=== PATIENT | male | born 1950 | race African-American/Black ===

== ENCOUNTER 2020-08-09 12:25 | Outpatient (CLI) | payer MEDICARE, SELFPAY ==
--- NOTE | ~2020-08-09 | XR_ITS ---
EXAMINATION: XR chest 2V EXAM DATE: 08/09/2020 13:23 INDICATION: Shortness of breath. TECHNIQUE: Frontal and lateral projections of the chest obtained and reviewed. There is no prior abdiaziz dy for comparison. FINDINGS: The lungs are clear. There are no pleural effusions. The cardiomediastinal silhouette is within normal limits. There is no pneumothorax suspected. The bones and soft tissues are unremarkab le. IMPRESSION: No acute cardiopulmonary findings. Reviewed, dictated and finalized at location A. CAID ELIGIBILITY SPECIALIST
[2020-08-09 13:01] LABS: Basophils Percent Auto 0.3 % (0.2-1.2); Eosinophils Absolute Auto 0.1 K/mm3 (0-0.3); Eosinophils Percent Auto 1.8 % (0-4.4); Hematocrit 41.9 % (42.0-52.0); Hemoglobin 13.7 g/dL (14.0-18.0); Immature Granulocyte Absolute 0.04 K/mm3 (0.00-0.031); Immature Granulocyte Percent A 0.7 % (0-0.5); Lymphocytes Absolute Auto 1.06 K/mm3 (0.9-3.2); Lymphocytes Percent Auto 17.4 % (18.3-44.2); Mean Corpuscular HGB Conc 32.7 g/dl (32-36); Mean Corpuscular Hemoglobin 27.4 pg (26-34); Mean Corpuscular Volume 83.8 fl (80-100); Mean Platelet Volume 11.7 fl (7.4-10.4); Monocytes Absolute Auto 0.5 K/mm3 (0.1-0.6); Monocytes Percent Auto 8.9 % (2.6-8.5); Neutrophils Absolute Auto 4.3 K/mm3 (1.3-6.7); Neutrophils Percent Auto 70.9 % (45.5-73.1); Platelet Count Result 164 k/mm3 (150-375); White Blood Count 6.1 K/mm3 (4.5-10.0)
[2020-08-09 13:11] LABS: Hemoglobin A1C 8.9 % (<5.7)
[2020-08-09 13:24] LABS: Alanine Aminotransferase 57 U/L (4-50); Albumin Level 4.4 g/dL (3.5-5.1); Alkaline Phosphatase 57 U/L (38-126); Anion Gap 5 mmol/L (8-16); Aspartate Amino Transferase 34 U/L (17-59); Bilirubin,Total 0.6 mg/dL (0.2-1.3); Blood Urea Nitrogen 15 mg/dL (9-20); Calcium 9.2 mg/dL (8.4-10.2); Carbon Dioxide 32 mmol/L (22-30); Chloride 100 mmol/L (98-107); Cholesterol 167 mg/dL (0-200); Estimated Glomerular Filt Rate > 60; Glucose 188 mg/dL (75-110); HDL Direct 54 mg/dL; Potassium 4.5 mmol/L (3.4-5.0); Sodium 137 mmol/L (137-145); Triglycerides 77 mg/dL (<150)
[2020-08-09 13:30] LABS: LDL Cholesterol Direct 89 mg/dL
== END 2020-08-09 12:26 | disposition home or self-care (01) ==
PROVIDERS: PCP Internal Medicine; Visit Provider Internal Medicine
DX: D64.9 Anemia, unspecified (principal); I10 Essential (primary) hypertension; R73.02 Impaired glucose tolerance (oral); E78.5 Hyperlipidemia, unspecified; R06.02 Shortness of breath
CPT/HCPCS: 36415; 71046; 80053; 80061; 83036; 85025

== ENCOUNTER → 2020-09-09 01:31 | Outpatient (CLI) | payer MEDICARE, SELFPAY ==
[2020-09-09 19:42] LABS: SARS-CoV-2 RNA PCR Negative
== END ==
PROVIDERS: PCP Internal Medicine; Visit Provider Internal Medicine Gastroenterology
DX: Z01.812 Encounter for preprocedural laboratory examination (principal); Z20.822 Contact with and (suspected) exposure to COVID-19
CPT/HCPCS: C9803; U0003; U0005

== ENCOUNTER 2020-12-08 11:12 | Outpatient (CLI) | payer MEDICARE, SELFPAY ==
--- NOTE | ~2020-12-08 | US_ITS ---
EXAMINATION: US venous doppler LE RT DATE: 12/08/2020 11:53 INDICATION: Right lower limb edema. TECHNIQUE: Grayscale ultrasound images without and with compression and Doppler ultrasound images of the right lower extremity veins were obtained. COMPARISON: None. FINDINGS: The visualized portions of right common femoral vein, profunda (deep) femoral vein, femoral vein, pop liteal vein, peroneal veins, posterior tibial veins, and greater saphenous vein outflow are patent. IMPRESSION: 1. No deep venous thrombosis. Reviewed, dictated and finalized at location A.
== END 2020-12-08 11:13 | disposition home or self-care (01) ==
LOC: ANHIMG 11:14
PROVIDERS: PCP Internal Medicine; Visit Provider Nurse Practitioner
DX: R60.9 Edema, unspecified (principal)
CPT/HCPCS: 93971

== ENCOUNTER 2020-12-29 12:59 | Outpatient (CLI) | payer MEDICARE, SELFPAY ==
--- NOTE | ~2020-12-29 | US_ITS ---
EXAMINATION: US joint non vasc ltd RT DATE: 12/29/2020 13:45 INDICATION: Swelling of the right leg TECHNIQUE: Multiple grayscale and Doppler ultrasound images of the posterior right knee were obtained . COMPARISON: None FINDINGS: Vessels appear normal at the right popliteal fossa with patent and compressible right popliteal and g astrocnemius veins. No abnormal masses or fluid collections identified. Specifically no Mckenzie's cyst is seen. IMPRESSION: 1. Normal study. No Mckenzie's cyst or other abnormal masses or fluid collections at the right popliteal fossa. Reviewed, dictated and finalized at location A.
== END 2020-12-29 13:00 | disposition home or self-care (01) ==
PROVIDERS: PCP Internal Medicine; Visit Provider Nurse Practitioner
DX: R60.9 Edema, unspecified (principal); M79.89 Other specified soft tissue disorders
CPT/HCPCS: 76882

== ENCOUNTER 2021-01-03 14:07 | Outpatient (CLI) | payer MEDICARE, SELFPAY ==
--- NOTE | ~2021-01-03 | CT_ITS ---
EXAMINATION: CT abdomen pelvis w con DATE: 01/03/2021 14:49 INDICATION: Localized edema TECHNIQUE: Computed tomography (CT) of the abdomen and pelvis was performed without intravenous contr ast. The dose-length product was 1332.56 mGy-cm. Automated exposure control and iterative reconstruct ion technique were employed. COMPARISON: None. FINDINGS: Lung bases are unremarkable. Heart size normal. No significant pleural or pericardial effus ion. Fatty infiltration of the liver. Mild atherosclerosis. No significant lymphadenopathy. The spleen, pancreas, left adrenal gland and kidneys are unremarkable. There is a 2.9 cm right adrena l mass, most likely benign adenoma. Gallbladder is present. Nonobstructive bowel gas pattern. No evid ence for diverticulitis. The appendix measures 9 mm which is mildly thickened, although there is no s urrounding periappendiceal inflammation. Prostate gland is enlarged. Mild lumbar spondylosis. IMPRESSION: 1. Hepatic steatosis. 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 3: Mildly thickened appendix measuring 9 mm, although no significant periappendiceal inflammation is identified to suggest acute appendicitis. Reviewed, dictated and finalized at location B. IMPRESSION: 1. Hepatic steatosis. 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 3: Mildly thickened appendix measuring 9 mm, although no significant periappend iceal inflammation is identified to suggest acute appendicitis.
[2021-01-03 14:44] LABS: Estimated Glomerular Filt Rate > 60
== END 2021-01-03 14:08 | disposition home or self-care (01) ==
LOC: ANHIMG 14:11
PROVIDERS: PCP Internal Medicine; Visit Provider Nurse Practitioner
DX: R60.0 Localized edema (principal); K76.0 Fatty (change of) liver, not elsewhere classified; E27.9 Disorder of adrenal gland, unspecified
CPT/HCPCS: 74177; Q9967

== ENCOUNTER 2021-03-09 15:33 | Outpatient (NON) | payer MEDICARE, SELFPAY | END 2021-03-09 15:34 | disposition home or self-care (01) | PROVIDERS: PCP Internal Medicine; Visit Provider Internal Medicine | DX: L02.91 Cutaneous abscess, unspecified (principal) | CPT/HCPCS: 87070; 87075; 87077; 87186; 87205 ==

== ENCOUNTER 2021-11-14 14:27 | Outpatient (CLI) | payer MEDICARE, SELFPAY ==
--- NOTE | ~2021-11-14 | US_ITS ---
EXAMINATION: US abdomen complete DATE: 11/14/2021 15:24 INDICATION: abdominal pain TECHNIQUE: Multiple grayscale and Doppler ultrasound images of the abdomen were obtained. COMPARISON: None available FINDINGS: The head, body, and tail of the pancreas are normal. The liver is enlarged and echogenic. N o surface nodularity. Normal hepatopetal flow in the main portal vein. The gallbladder is normal with no abnormal wall thickening, pericholecystic fluid or stones. The normal common bile duct measures 0 .6 cm . There was no sonographic Wilson sign. The aorta and inferior vena cava are obscured. The right kidney measures 11.1 cm. The left kidney measures 11.6 cm. The kidneys demonstrate normal p arenchymal echogenicity. There is no hydronephrosis. The spleen is normal in appearance and measures 10.2 cm. IMPRESSION: 1. Hepatomegaly and steatosis, noting that hepatitis and fibrosis can also appear echogenic on ultras ound. Reviewed, dictated and finalized at location K. IMPRESSION: 1. Hepatomegaly and steatosis, noting that hepatitis and fibrosis can also appe ar echogenic on ultrasound.
[2021-11-14 16:02] LABS: Hematocrit 40.8 % (42.0-52.0); Hemoglobin 12.8 g/dL (14.0-18.0)
[2021-11-14 16:20] LABS: Alanine Aminotransferase 30 U/L (4-50); Albumin Level 4.8 g/dL (3.5-5.1); Alkaline Phosphatase 60 U/L (38-126); Anion Gap 4 mmol/L (8-16); Aspartate Amino Transferase 24 U/L (17-59); Bilirubin,Total 0.7 mg/dL (0.2-1.3); Blood Urea Nitrogen 18 mg/dL (9-20); Calcium 8.7 mg/dL (8.4-10.2); Carbon Dioxide 32 mmol/L (22-30); Chloride 99 mmol/L (98-107); Cholesterol 174 mg/dL (0-200); Glucose 118 mg/dL (65-110); HDL Direct 60 mg/dL; Potassium 4.3 mmol/L (3.4-5.0); Sodium 135 mmol/L (137-145); Triglycerides 68 mg/dL (<150)
[2021-11-14 16:24] LABS: LDL Cholesterol Direct 87 mg/dL
[2021-11-14 16:29] LABS: Estimated Glomerular Filt Rate > 60
[2021-11-14 16:41] LABS: Hemoglobin A1C 7.5 % (<5.7)
== END 2021-11-14 14:28 | disposition home or self-care (01) ==
PROVIDERS: PCP Internal Medicine; Visit Provider Internal Medicine
DX: R10.9 Unspecified abdominal pain (principal); E78.5 Hyperlipidemia, unspecified; E11.9 Type 2 diabetes mellitus without complications; I10 Essential (primary) hypertension; D64.9 Anemia, unspecified; R16.0 Hepatomegaly, not elsewhere classified; K76.0 Fatty (change of) liver, not elsewhere classified
CPT/HCPCS: 36415; 76700; 80053; 80061; 83036; 85014; 85018

== ENCOUNTER 2022-04-29 14:47 | Outpatient (CLI) | payer MEDICARE, SELFPAY ==
[2022-04-29 15:55] LABS: Alanine Aminotransferase 29 U/L (6-50); Albumin Level 4.5 g/dL (3.5-5.1); Alkaline Phosphatase 54 U/L (38-126); Anion Gap 11 mmol/L (8-16); Aspartate Amino Transferase 21 U/L (17-59); Bilirubin,Total 0.3 mg/dL (0.2-1.3); Blood Urea Nitrogen 15 mg/dL (9-20); Calcium 8.9 mg/dL (8.4-10.2); Carbon Dioxide 30 mmol/L (22-30); Chloride 98 mmol/L (98-107); Cholesterol 170 mg/dL (0-200); Estimated Glomerular Filt Rate > 60; Glucose 136 mg/dL (65-110); HDL Direct 47 mg/dL; Potassium 3.8 mmol/L (3.4-5.0); Sodium 139 mmol/L (137-145); Triglycerides 134 mg/dL (<150)
[2022-04-29 16:00] LABS: Hemoglobin A1C 8.8 % (<5.7)
[2022-04-29 16:05] LABS: LDL Cholesterol Direct 91 mg/dL
== END 2022-04-29 14:48 | disposition home or self-care (01) ==
PROVIDERS: PCP Internal Medicine; Visit Provider Internal Medicine
DX: E11.9 Type 2 diabetes mellitus without complications (principal); I10 Essential (primary) hypertension; E78.5 Hyperlipidemia, unspecified
CPT/HCPCS: 36415; 80053; 80061; 83036

== ENCOUNTER 2022-09-09 09:59 | Outpatient (CLI) | payer MEDICARE, SELFPAY ==
[2022-09-09 11:03] LABS: Alanine Aminotransferase 34 U/L (6-50); Albumin Level 4.8 g/dL (3.5-5.1); Alkaline Phosphatase 57 U/L (38-126); Anion Gap 6 mmol/L (8-16); Aspartate Amino Transferase 23 U/L (17-59); Bilirubin,Total 0.7 mg/dL (0.2-1.3); Blood Urea Nitrogen 13 mg/dL (9-20); Calcium 9.6 mg/dL (8.4-10.2); Carbon Dioxide 29 mmol/L (22-30); Chloride 96 mmol/L (98-107); Cholesterol 166 mg/dL (0-200); Estimated Glomerular Filt Rate > 60; Glucose 158 mg/dL (65-110); HDL Direct 45 mg/dL; Potassium 4.2 mmol/L (3.4-5.0); Sodium 131 mmol/L (137-145); Triglycerides 93 mg/dL (<150)
[2022-09-09 11:14] LABS: LDL Cholesterol Direct 82 mg/dL
[2022-09-09 17:14] LABS: Hemoglobin A1C 8.5 % (<5.7)
== END 2022-09-09 10:00 | disposition home or self-care (01) ==
PROVIDERS: PCP Internal Medicine; Visit Provider Nurse Practitioner Family
DX: E78.5 Hyperlipidemia, unspecified (principal); E11.9 Type 2 diabetes mellitus without complications
CPT/HCPCS: 36415; 80053; 80061; 83036

== ENCOUNTER 2023-01-15 10:19 | Outpatient (CLI) | payer MEDICARE, SELFPAY ==
[2023-01-15 11:08] LABS: Alanine Aminotransferase 24 U/L (6-50); Albumin Level 4.5 g/dL (3.5-5.1); Alkaline Phosphatase 48 U/L (38-126); Anion Gap 6 mmol/L (8-16); Aspartate Amino Transferase 20 U/L (17-59); Bilirubin,Total 0.4 mg/dL (0.2-1.3); Blood Urea Nitrogen 15 mg/dL (9-20); Calcium 8.7 mg/dL (8.4-10.2); Carbon Dioxide 29 mmol/L (22-30); Chloride 104 mmol/L (98-107); Cholesterol 177 mg/dL (0-200); Estimated Glomerular Filt Rate > 60; Glucose 150 mg/dL (65-110); HDL Direct 57 mg/dL; Potassium 4.2 mmol/L (3.4-5.0); Sodium 139 mmol/L (137-145); Triglycerides 74 mg/dL (<150)
[2023-01-15 11:19] LABS: LDL Cholesterol Direct 89 mg/dL
== END 2023-01-15 10:20 | disposition home or self-care (01) ==
PROVIDERS: PCP Nurse Practitioner; Visit Provider Nurse Practitioner
DX: E78.5 Hyperlipidemia, unspecified (principal); E11.9 Type 2 diabetes mellitus without complications
CPT/HCPCS: 36415; 80053; 80061; 83036

== ENCOUNTER 2023-01-16 15:52 | Outpatient (CLI) | payer MEDICARE, SELFPAY ==
[2023-01-16 17:00] LABS: Hematocrit 39.7 % (42.0-52.0); Hemoglobin 12.7 g/dL (14.0-18.0); Mean Corpuscular Hemoglobin 27.7 pg (26-34); Mean Corpuscular Volume 86.7 fl (80-100); Mean Platelet Volume 11.4 fl (7.4-10.4); Platelet Count Result 171 k/mm3 (150-375); Red Blood Count 4.58 M/mm3 (4.6-6.20); Red Cell Distribution Width 13.6 % (11.5-14.5); White Blood Count 5.7 K/mm3 (4.5-10.0)
== END 2023-01-16 15:53 | disposition home or self-care (01) ==
LOC: ANHLAB 15:58
PROVIDERS: PCP Nurse Practitioner; Visit Provider Family Medicine
DX: D64.9 Anemia, unspecified (principal); E11.9 Type 2 diabetes mellitus without complications; E66.9 Obesity, unspecified; E78.5 Hyperlipidemia, unspecified; G47.33 Obstructive sleep apnea (adult) (pediatric); I10 Essential (primary) hypertension; K21.9 Gastro-esophageal reflux disease without esophagitis; M16.11 Unilateral primary osteoarthritis, right hip; M17.0 Bilateral primary osteoarthritis of knee; N40.0 Benign prostatic hyperplasia without lower urinary tract symptoms; R06.02 Shortness of breath; R60.0 Localized edema
CPT/HCPCS: 36415; 85027

== ENCOUNTER 2023-04-07 14:56 | Outpatient (CLI) | payer MEDICARE, SELFPAY ==
[2023-04-07 16:21] LABS: Thyroid Stimulating Hormone 0.558 uIU/mL (0.465-4.680)
[2023-04-07 16:38] LABS: Iron 72 ug/dL (49-181)
[2023-04-07 16:47] LABS: Percent Iron Saturation 20 % (20-50)
== END 2023-04-07 14:57 | disposition home or self-care (01) ==
PROVIDERS: Family Medicine; PCP Nurse Practitioner; Visit Provider Nurse Practitioner Family
DX: D64.9 Anemia, unspecified (principal)
CPT/HCPCS: 36415; 82607; 83540; 83550; 84443

== ENCOUNTER 2024-01-28 15:42 | Outpatient (CLI) | payer MEDICARE, SELFPAY ==
[2024-01-28 16:58] LABS: Creatinine Urine 71.9 mg/dL
[2024-01-28 17:03] LABS: MALB Creatinine Ratio 10.8 mg/g (0-30); Microalbumin Urine Random 7.8 mg/L (0-16.7)
[2024-01-28 17:50] LABS: Hemoglobin A1C 6.9 % (<5.7)
== END 2024-01-28 15:43 | disposition home or self-care (01) ==
PROVIDERS: PCP Family Medicine; Visit Provider Family Medicine
DX: E11.9 Type 2 diabetes mellitus without complications (principal); N40.0 Benign prostatic hyperplasia without lower urinary tract symptoms; D64.9 Anemia, unspecified; I10 Essential (primary) hypertension; E78.5 Hyperlipidemia, unspecified; G47.33 Obstructive sleep apnea (adult) (pediatric); E66.9 Obesity, unspecified; Z00.00 Encounter for general adult medical examination without abnormal findings
CPT/HCPCS: 36415; 82043; 83036

== ENCOUNTER 2024-01-29 09:34 | Outpatient (CLI) | payer MEDICARE, SELFPAY ==
[2024-01-29 10:32] LABS: Alanine Aminotransferase 20 U/L (6-50); Albumin Level 4.6 g/dL (3.5-5.1); Alkaline Phosphatase 45 U/L (38-126); Anion Gap 7 mmol/L (4-12); Aspartate Amino Transferase 21 U/L (17-59); Bilirubin,Total 0.5 mg/dL (0.2-1.3); Blood Urea Nitrogen 12 mg/dL (9-20); Carbon Dioxide 33 mmol/L (22-30); Chloride 98 mmol/L (98-107); Cholesterol 155 mg/dL (0-200); Estimated Glomerular Filt Rate > 60; Glucose 116 mg/dL (65-110); HDL Direct 51 mg/dL; Potassium 4.3 mmol/L (3.4-5.0); Sodium 138 mmol/L (137-145); Triglycerides 99 mg/dL (<150)
[2024-01-29 10:43] LABS: LDL Cholesterol Direct 85 mg/dL
[2024-01-29 11:00] LABS: Prostate Specific Antigen 1.5 ng/mL (< OR = 4.0)
== END 2024-01-29 09:35 | disposition home or self-care (01) ==
LOC: ANHLAB 09:39
PROVIDERS: PCP Family Medicine; Visit Provider Family Medicine
DX: E66.9 Obesity, unspecified (principal); Z00.00 Encounter for general adult medical examination without abnormal findings; I10 Essential (primary) hypertension; D64.9 Anemia, unspecified; N40.0 Benign prostatic hyperplasia without lower urinary tract symptoms; G47.33 Obstructive sleep apnea (adult) (pediatric); E78.5 Hyperlipidemia, unspecified; Z12.5 Encounter for screening for malignant neoplasm of prostate
CPT/HCPCS: 36415; 80053; 80061; 84153; G0103

== ENCOUNTER 2024-08-09 12:09 | Outpatient (CLI) | payer MEDICARE, SELFPAY ==
--- NOTE | ~2024-08-09 | XR_ITS ---
Clinical Indication: Cough PA and lateral views of the chest: Comparison: 08/09/2020 Findings: The lungs are clear, without evidence of focal consolidation or pleural effusion. Cardiome diastinal silhouette is within normal limits. Bones and soft tissues are unremarkable. Impression: Normal chest. Reviewed, dictated and finalized at location . ORS MOTIVATIONAL Impression: Normal chest.
--- OUTSIDE RECORDS SUMMARY | 2024-08-09 12:51 | XMS_ITS | Clinical Summary ---
Author Organization [facility] Address [address] [place] [address] Care Team Providers Care Cost Control Supervisor Name Role Phone Yung Koch Primary Care Provider [phone] Source Comments [facility],non-owned Affiliates and Associated Physician Practices is amultiple site organization consisting of ambulatory clinics and hospital sitesin [place], [place], [place] and [place]. This disclosure is being madepursuant to the Care Everywhere program and may not contain all information available regarding this patient. Last updated 18.[facility] Allergies No known active allergies Social History Tobacco Use Types Packs/Day Years Used Date Smoking Tobacco: Never Assessed Sex and Gender Information Value Date Recorded Sex Assigned at Not on file Gender Identity Not on file Sexual Orientation Not on file Last Filed Vital Signs Vital Sign Reading Time Taken Comments Blood Pressure 132/90 06/09/2020 2:54 PM BEAD FLIPPER Pulse 70 06/09/2020 2:54 PM BEAD FLIPPER Temperature 37.1 ??C (98.7 ??F) 06/09/2020 2:54 PM CS T Respiratory Rate 16 06/09/2020 2:54 PM BEAD FLIPPER Oxygen Saturation 95% 06/09/2020 2:54 PM BEAD FLIPPER Inhaled Oxygen Concentration - - Weight 113.4 kg (250 lb) 06/09/2020 2:54 PM BEAD FLIPPER Height 180.3 cm (5' 11 ) 06/09/2020 2:54 PM BEAD FLIPPER Body Mass Index 34.87 06/09/2020 2:54 PM BEAD FLIPPER Plan of Treatment Health Maintenance Due Date Last Done Comments KWASI (AGES 45-75) - COL ON CA SCREENING 1949 COLON MONITORING 1949 COLONOSCOPY - COLON CA SCREENING 1949 CT COLONOGRAPHY - COLON CA SCREENING 1949 Colorectal Cancer Screening 1949 FIT - COLON CA SCREENING 1949 FLEX SIG - COLON CA SCREENING 1949 LIPID TESTING 1949 HEPATITIS C SCREENING 07/28/1967 DTAP/TDAP/TD VACCINES (1 - Tdap) 1968 PNEUMOCOCCAL VACCINE 50+ (1 of 1 - PCV) 1999 ZOSTER VACCINE (1 of 2) 1999 SCREENING FOR DIABETES 06/09/2020 COVID-19 VACCINE (1 - 2023-2 5 season) 2024 INFLUENZA VACCINE (#1) 2024 DEPRESSION SCREENING 07/14/2024 MEDICARE AWV ? CALENDAR YEAR 2024 Respiratory Syncytial Virus (RSV) Vaccine Pt: or over 60 yrs (1 - 1-dose 75+ series) 2024 HEPATITIS B VACCINE Aged Out No longe r eligible based on patient's age to complete this topic HIB VACCINE Aged Out No longer eligi ble based on patient's age to complete this topic HPV VACCINE Aged Out No longer eligi ble based on patient's age to complete this topic MENINGOCOCCAL (Group B) VACCINE Aged Out No longer eligible based on patient's age to complete this topic MENINGOCOCCAL VACCINE Aged Out No angi tahira eligible based on patient's age to complete this topic Care Teams Cost Control Supervisor Relationship Specialty Start Date End Date Yung Koch DO [address] [place] [address] PCP - General Internal Medicine 06/09/20
--- OUTSIDE RECORDS SUMMARY | 2024-08-09 12:51 | XMS_ITS | Referral Summary ---
Author Organization [facility] Address [address] [place] [address] Care Team Providers Care Casing Blower Name Role Phone Unknown, Notinfile Primary Care Provider Unavail able Allergies No known active allergies Medications Accu-Chek Fastclix Lancet Drum misc USE TO CHECK BLOOD SUGAR EVERY DAY 11/11/2020 Active lisinopriL (PRINIVIL,ZESTR IL) 40 mg tablet Take 1 tablet (40 mg total) by mouth daily 12/23/2020 Active semaglutide (OZEMPIC SUBQ) Inject under the skin Active benzonatate (TESSALON) 200 mg capsuleIndicati ons:COVID-19 Take 1 capsule (200 mg total) by mouth 3 (three) times a day as needed for cough 30 capsule 02/14/2024 Active Active Problems Problem Noted Date Diagnosed Date Lymphedema 03/01/2021 Assessment & Plan (04/06/2021 3:24 PM CDT): Impression: Patient complains of a history of bilateral lower extremity edema with right lower extremity worsening in the last month. He is currently not utilizing medical grade compression stockings. He denies any symptoms of claudication, ischemic rest pain, or ulcerations to bilateral lower extremities. Patient has significant chronic edema, hyperpigmentation, and swelling from the toes to the groin, has been utilizing compression therapy 20-30 mm of mercury for greater than 4 weeks, leg elevation, and exercise without improvement of symptoms Plan: Recommend patient wearing medical grade 20 30 mmHg compression stocking and elevate legs to help with edema. Patient to follow-up in 4 weeks for re- evaluation. Assessment & Plan (04/05/2021 9:46 AM CDT): Patient has lymphedema of the bilateral lower extremities without any signs of reflux of the great or small saphenous vein on the right. Plan will be to continue using his compression stockings, lymphedema pumps, leg elevation, exercise and weight loss. I will have him follow up in 3 months to see how he is doing with his lymphedema pumps. Assessment & Plan (03/01/2021 12:16 PM CDT): Patient has bilateral lower extremity lymphedema worse on the right. He has been wearing compression stockings and is keeping his legs elevated whenever he is sitting. He has also been compliant with exercising as much as he can as he walks several miles a day. He also has skin changes with hyperpigmentation of his bilateral lower extremities. Plan will be for lymphedema pumps to aid in decreasing the swelling of his bilateral lower extremities. He will also continue wear his compression stockings daily and keep his legs elevated when able. I will have him follow up in 1 month. BMI 38.0-38.9,adult 02/02/2021 Hypertension 02/02/2021 Assessment & Plan (04/05/2021 9:47 AM CDT): Followed by his PCP and controlled on his current medications. Assessment & Plan (03/01/2021 12:14 PM CDT): Followed by his PCP and currently controlled on his medications. Assessment & Plan (02/02/2021 11:41 AM CDT): Impression: Patient reports he has newly diagnosed in the last 6 months with hypertension. Primary care provider is currently changing medications to meet goal. Plan: Medications reviewed. Continue blood pressure management as per primary care provider. Type 2 diabetes mellitus wit hout complication, without long-term current use of insulin ([facility]) 02/02/2021 Assessment & Plan (04/05/2021 9:46 AM CDT): Followed by his PCP and controlled on his current medications. Assessment & Plan (03/01/2021 12:14 PM CDT): Followed by his PCP and controlled on his current medications. Assessment & Plan (02/02/2021 11:42 AM CDT): Impression: Patient reports he has newly diagnosed type 2 diabetes in the last 6 months. Blood sugars are controlled with medications. Plan: Medications reviewed. Continue glucose monitoring as per primary care provider. Localized edema 02/02/2021 Immunizations Name Administration Dates Next Due Influenza, Quadrivalent, Hig h Dose, Preservative Free, Intrr 05/09/2021 Influenza, Trivalent, Adjuvanted, Intramuscular 09/22/2019 Influenza, Trivalent, High D ose, Split, Preservative Free, Intramuscular 05/10/2017,07/03/2016 Influenza, Trivalent, IM (MDV) 05/27/2014 Influenza, Trivalent, Preservative Free, Intramu scular 06/16/2015 Social History Tobacco Use Types Packs/Day Years Used Date Smoking Tobacco: Former Smokeless Tobacco: Never Personal Safety Answer Date Recorded Getting School Help Needed Not on file 09/13 Sex and Gender Information Value Date Recorded Sex Assigned at Not on file Legal Sex Male 3:50 PM CDT Gender Identity Not on file Sexual Orientation Not on file Last Filed Vital Signs Vital Sign Reading Time Taken Comments Blood Pressure 145/79 02/14/2024 6:06 PM CDT Pulse 75 02/14/2024 6:06 PM CDT Temperature 37.2 ??C (99 ??F) 02/14/2024 6:06 PM CDT Respiratory Rate 22 02/14/2024 6:06 PM CDT Oxygen Saturation 97% 02/14/2024 6:06 PM CDT Inhaled Oxygen Concentration - - Weight 113.4 kg (250 lb) 02/14/2024 6:06 PM CDT Height 180.3 cm (5' 11 ) 02/14/2024 6:06 PM CDT Body Mass Index 34.87 02/14/2024 6:06 PM CDT Plan of Treatment Not on file Insurance [facility] MDCR HMO REF MEDICARE SOLUTIONS Care Teams Casing Blower Relationship Specialty Start Date End Date Unknown, Notinfile PCP - General 02/14/24
--- OUTSIDE RECORDS SUMMARY | 2024-08-09 12:51 | XMS_ITS | Patient Health Summary ---
Author Organization [facility] [employer] Address [address] [place] [address] Care Team Providers Care Russian History Professor Name Role Phone Yung Koch Primary Care Provider [phone] Note from [facility],non-owned Affiliates and Associated Physician Practices is amultiple site organization consisting of ambulatory clinics and hospital sitesin [place], [place], [place] and [place]. This disclosure is being madepursuant to the Care Everywhere program and may not contain all information available regarding this patient. Last updated 18.[facility] [employer] Allergies No known active allergies Social History Tobacco Use Types Packs/Day Years Used Date Smoking Tobacco: Never Assessed Sex and Gender Information Value Date Recorded Sex Assigned at Not on file Gender Identity Not on file Sexual Orientation Not on file Last Filed Vital Signs Vital Sign Reading Time Taken Comments Blood Pressure 132/90 06/09/2020 2:54 PM BLANKING MACHINE OPERATOR Pulse 70 06/09/2020 2:54 PM BLANKING MACHINE OPERATOR Temperature 37.1 ??C (98.7 ??F) 06/09/2020 2:54 PM CS T Respiratory Rate 16 06/09/2020 2:54 PM BLANKING MACHINE OPERATOR Oxygen Saturation 95% 06/09/2020 2:54 PM BLANKING MACHINE OPERATOR Inhaled Oxygen Concentration - - Weight 113.4 kg (250 lb) 06/09/2020 2:54 PM BLANKING MACHINE OPERATOR Height 180.3 cm (5' 11 ) 06/09/2020 2:54 PM BLANKING MACHINE OPERATOR Body Mass Index 34.87 06/09/2020 2:54 PM BLANKING MACHINE OPERATOR Procedures * COVID-19 SARS-COV-2 PCR QUAL ([facility])(Performed 06/09/2020) Performed for Acute maxillary sinusitis, recurrence not specified Results * COVID-19 SARS-COV-2 PCR QUAL ([facility]) (06/09/2020 3:04 PM BLANKING MACHINE OPERATOR) SARS-CoV-2 RUSLAN Not Detected Not Detected [facility] ACCOUNT BILL Comment: This nucleic acid amplification test was developed and its performance characteristics determined by [employer]. Nucleic acid amplification tests include PCR and TMA. This test has not been FDA cleared or approved. This test has been authorized by FDA under an Emergency Use Authorization (EUA). This test is only authorized for the duration of time the declaration that circumstances exist justifying the authorization of the emergency use of in vitro diagnostic tests for detection of SARS-CoV-2 virus and/or diagnosis of COVID-19 infection under section 564(b)(1) of the Act, 21 U.S.C. 360bbb-3(b) (1), unless the authorization is terminated or revoked sooner. When diagnostic testing is negative, the possibility of a false negative result should be considered in the context of a patient's recent exposures and the presence of clinical signs and symptoms consistent with COVID-19. An individual without symptoms of COVID-19 and who is not shedding SARS-CoV-2 virus would expect to have a negative (not detected) result in this assay. Microbiology SPECIMEN FROM NASOPHARYNGEAL STRUCTURE / Unknown 06/09/2020 3:04 PM BLANKING MACHINE OPERATOR 06/10/2020 Narrative Resulting Agency Comment Lab Testing performed at: [facility] ?? [place] [id number] Alfred Lynn [employer]CR[employer] AGENT-HOT CELL TECHNICIAN LAB - MICROBIOLOG Y ORDERABLES [facility] ACCOUNT BILL [address] [place] [address] Care Teams Russian History Professor Relationship Specialty Start Date End Date Yung Koch DO [address] [place] [address] PCP - General Internal Medicine 06/09/20
--- OUTSIDE RECORDS SUMMARY | 2024-08-09 12:51 | XMS_ITS | Clinical Summary ---
Author Organization [facility] [place] [facility] Address [address] [place] [address] Care Team Providers Care Instrument Man Name Role Phone Unknown, Notinfile Primary Care [...] complication, without long-term current use of insulin ([facility]) 02/02/2021 Assessment & Plan (04/05/2021 9:46 AM [...] on file Sexual Orientation Not on file Obstetrics History Last Filed Vital Signs Vital Sign Reading [...] 02/14/2024 6:06 PM CDT Plan of Treatment Health Maintenance Due Date Last Done Comments Albumin Creatinine Ratio, Urine 1949 Colon Cancer Screening-Colonoscopy 1949 Depression Screening 1949 Fall Risk Assessment 1949 Hemoglobin A1C 1949 Hepatitis C Screening 1949 eGFR 1949 Dilated Eye Exam 1949 Foot Exam 1949 Lipid Panel 1949 Pneumococcal vaccine 65+ (1 of 2 - PCV) 1955 DTaP/Tdap/Td Vaccine (1 - Tdap) 1960 Hepatitis B Screening 1967 Zoster Vaccine (1 of 2) 1999 Abdominal Aortic Aneurysm (A AA) Screen 2014 Well Visit 65+ 2014 Covid-19 Vaccine (2 - 2023-2 5 season) 2024 05/09/2021 Influenza Vaccine (#1) 2024 , 09/22/2019, 05/10/2017, Additional history exists Insurance [facility] MDCR HMO REF [facility] Address: [address] [address] [place] [address] MEDICARE SOL[employer] [facility] MEDIC[facility] Address: [address] [address] [place] [address] Care Teams Instrument Man Relationship Specialty Start Date End Date Unknown, Notinfile PCP - General 02/14/24
--- OUTSIDE RECORDS SUMMARY | 2024-08-09 12:51 | XMS_ITS | Referral Summary ---
Author Organization [facility] [employer] Address [address] [place] [address] Care Team Providers Care Farmer General Name Role Phone Yung Koch Primary Care Provider [phone] Source Comments [facility],non-owned Affiliates and Associated Physician Practices is amultiple site organization consisting of ambulatory clinics and hospital sitesin [place], [place], [place] and [place]. This disclosure is being madepursuant to the Care Everywhere program and may not contain all information available regarding this patient. Last updated 18.[facility] [employer] Allergies No known active allergies Social History Tobacco Use Types Packs/Day Years Used Date Smoking Tobacco: Never Assessed Sex and Gender Information Value Date Recorded Sex Assigned at Not on file Gender Identity Not on file Sexual Orientation Not on file Last Filed Vital Signs Vital Sign Reading Time Taken Comments Blood Pressure 132/90 06/09/2020 2:54 PM LOGGING ENGINEER Pulse 70 06/09/2020 2:54 PM LOGGING ENGINEER Temperature 37.1 ??C (98.7 ??F) 06/09/2020 2:54 PM CS T Respiratory Rate 16 06/09/2020 2:54 PM LOGGING ENGINEER Oxygen Saturation 95% 06/09/2020 2:54 PM LOGGING ENGINEER Inhaled Oxygen Concentration - - Weight 113.4 kg (250 lb) 06/09/2020 2:54 PM LOGGING ENGINEER Height 180.3 cm (5' 11 ) 06/09/2020 2:54 PM LOGGING ENGINEER Body Mass Index 34.87 06/09/2020 2:54 PM LOGGING ENGINEER Plan of Treatment Not on file Care Teams Farmer General Relationship Specialty Start Date End Date Yung Koch DO [address] [place] [address] PCP - General Internal Medicine 06/09/20
[2024-08-09 12:59] LABS: Hemoglobin 12.9 g/dL (14.0-18.0); Mean Corpuscular HGB Conc 32.3 g/dl (32-36); Mean Corpuscular Hemoglobin 27.3 pg (26-34); Mean Corpuscular Volume 84.7 fl (80-100); Mean Platelet Volume 10.9 fl (7.4-10.4); Platelet Count Result 184 k/mm3 (150-375); Red Blood Count 4.72 M/mm3 (4.6-6.20); Red Cell Distribution Width 13.1 % (11.5-14.5); White Blood Count 5.1 K/mm3 (4.5-10.0)
[2024-08-09 13:15] LABS: Alanine Aminotransferase 28 U/L (6-50); Albumin Level 4.4 g/dL (3.5-5.1); Alkaline Phosphatase 43 U/L (38-126); Anion Gap 7 mmol/L (4-12); Aspartate Amino Transferase 25 U/L (17-59); Bilirubin,Total 0.8 mg/dL (0.2-1.3); Blood Urea Nitrogen 11 mg/dL (9-20); Calcium 8.8 mg/dL (8.4-10.2); Carbon Dioxide 32 mmol/L (22-30); Chloride 100 mmol/L (98-107); Estimated Glomerular Filt Rate > 60; Glucose 106 mg/dL (65-110); Potassium 4.4 mmol/L (3.4-5.0); Sodium 139 mmol/L (137-145)
[2024-08-09 13:40] LABS: Creatinine Urine 84.7 mg/dL
[2024-08-09 13:44] LABS: Microalbumin Urine Random 59.3 mg/L (0-16.7)
[2024-08-09 22:36] LABS: Hemoglobin A1C 8.7 % (<5.7)
== END 2024-08-09 12:10 | disposition home or self-care (01) ==
PROVIDERS: PCP Family Medicine; Visit Provider Nurse Practitioner Family
DX: R05.9 Cough, unspecified (principal); E11.9 Type 2 diabetes mellitus without complications
CPT/HCPCS: 36415; 71046; 80053; 82043; 83036; 85027

== ENCOUNTER 2024-10-18 08:54 | Observation (INO) | payer MEDICARE, SELFPAY ==
[2024-10-18] VITALS (12 sets, daily range): BP systolic 128–167; BP diastolic 63–101; PULSE 57–77; RESP 14–18; TEMP 36.6–37.1; O2SAT 94–98; BMI 34.7
--- NOTE | ~2024-10-18 | CT_ITS ---
CT brain wo con Ordering provider: Supriya Mederos PA-C History: 74 years Male with . dizziness . Comparison: None. Technique: CT of the head without contrast. Radiation reduction technique utilized.The dose-length pr oduct was 605.33 mGy-cm. FINDINGS: BRAIN PARENCHYMA AND CSF SPACES: Mild leukoaraiosis and diffuse cortical atrophy. Mild atheromatous d isease. No midline shift, mass effect or hemorrhage. The brain parenchyma and CSF spaces are otherwi se normal. VISUALIZED PARANASAL SINUSES: Well aerated. MASTOIDS: Well aerated. BONES: The bones appear intact. SOFT TISSUES: Visualized nasopharynx is normal. Superficial soft tissues are normal. IMPRESSION: No acute intracranial findings. Reviewed, dictated and finalized at location A.
--- NOTE | ~2024-10-18 | XR_ITS ---
Clinical Indication: Dizziness PA and lateral views of the chest: Comparison: 08/09/2024 Findings: The lungs are clear, without evidence of focal consolidation or pleural effusion. Cardiome diastinal silhouette is within normal limits. Bones and soft tissues are unremarkable. Impression: Normal chest. Reviewed, dictated and finalized at location . Impression: Normal chest.
--- NOTE | ~2024-10-18 | CT_ITS ---
CTA brain carotid Ordering provider: Supriya Mederos PA-C History: . dizziness . Comparison: October 28, 2024 Technique: CT angiogram head and neck was performed following timed intravenous injection of contrast . Thin slice axial images and reformatted coronal images were obtained. Three dimensional reformatted images of the brain were also obtained using a [employer] workstation. Radiation reduction technique ut ilized.The dose-length product was 1171.52 mGy-cm. 100 mL Omnipaque 350 was given IV. FINDINGS: HEAD: --ANTERIOR AND MIDDLE CEREBRAL ARTERIES AND BRANCHES: Normal caliber and contour. --INTERNAL CAROTID ARTERIES: Mild atheromatous disease but no significant stenosis. No occlusion. --BASILAR ARTERY AND BRANCHES: Normal caliber and contour. No atheromatous disease. --POSTERIOR CEREBRAL ARTERIES: Normal caliber and contour --POSTERIOR COMMUNICATING ARTERIES: The right is demonstrated. The left is not visualized which is pr obably related to congenital absence or small size. --ANEURYSM: None visualized. --BRAIN: Please refer to report of CT head performed the same day. --BONES AND SUPERFICIAL SOFT TISSUES: Please refer to report of CT head performed the same day. --PARANASAL SINUSES AND MASTOIDS: Please refer to report of CT head done the same day. NECK: --RIGHT CERVICAL CAROTID SYSTEM: Normal caliber and contour. Percent stenosis per NASCET criteria is 0%. No carotid dissection. Otherwise, no significant atheromatous disease or stenosis of the cervica l carotid system. --LEFT CERVICAL CAROTID SYSTEM: Normal caliber and contour. Percent stenosis per NASCET criteria is 0%. No carotid dissection. Otherwise, no significant atheromatous disease or stenosis of the cervical carotid system. --VERTEBRAL ARTERIES: Normal caliber and contour. --VISUALIZED AORTIC ARCH AND BRANCHING VESSELS: Normal caliber and contour. No significant atheromato us disease. --SOFT TISSUES: Nodule in the right lobe of the thyroid with calcification. Ultrasound evaluation adv ised. --CERVICAL SPINE: Age appropriate degenerative changes. IMPRESSION: 1. Normal CTA head and neck. Percent stenosis per NASCET criteria is 0%. Reviewed, dictated and finalized at location A.
--- NOTE | ~2024-10-18 | MR_ITS ---
EXAMINATION: MR brain/brain stem wo/w con DATE: 10/20/2024 10:25 INDICATION: Transient ischemic episode TECHNIQUE: Magnetic resonance imaging (MRI) of the brain and brainstem was performed without and with 20 mL ProHance intravenous contrast. Sequences included sagittal and axial T1-weighted SE, axial dif fusion-weighted FS SE, axial 3D SWAN, axial T2-weighted FLAIR, and axial T2-weighted FSE. Postcontras t axial and coronal T1-weighted SE was obtained. Apparent diffusion coefficient (ADC) maps were creat ed. COMPARISON: Head CT and CT angiogram dated 10/18/2024 FINDINGS: There are no areas of restricted diffusion to suggest acute infarction. No intracranial hemorrhage or abnormal intracranial mass lesion. There are scattered areas of nonspecific increased T2-weighted si gnal intensity in the cerebral white matter, predominantly involving the deep and periventricular whi te matter which is within normal limits for age and likely sequela of chronic small vessel ischemic d isease. There are no intraparenchymal signal abnormalities seen on the other pulse sequences. The angeline tricles are symmetric and normal in size. There are no abnormal extra-axial fluid collections. Flow v oids are seen in the cerebral arteries on the T2-weighted sequences consistent with their expected pa tency. Mild mucosal thickening in the bilateral ethmoid and maxillary sinuses. Visualized orbits and soft tissues are unremarkable. There are no areas of abnormal enhancement on the post contrast images . IMPRESSION: 1. Normal aging brain. No acute intracranial process or abnormally enhancing brain lesions. Reviewed, dictated and finalized at location B. IMPRESSION: 1. Normal aging brain. No acute intracranial process or abnormally enhancing br ain lesions.
--- NOTE | 2024-10-18 08:57 | ECG_ITS ---
Test Date: 2024-10-18 09:01:44 Measurements Intervals Boody Rate: 61 P: 64 ID: [id number] QRS: 31 QRSD: 86 T: 81 QT: 402 QTc: 407 Interpretive Statements SINUS RHYTHM CANNOT R/O SEPTAL INFARCT, AGE INDETERMINATE BORDERLINE ST-T WAVE ABNORMALITY- DIFFUSE LEADS BASELINE ARTIFACT- I, II, AVR, V2 ABNORMAL ECG No previous ECG available for comparison Electronically Signed On 10-18-2024 09:12:06 CDT by Ashutosh Deutsch D.O.
[2024-10-18] MEDS: ONDANSETRON INJ 4 MG/2 ML VIAL IV PUSH (09:33)
[2024-10-18] MEDS: MECLIZINE HCL 25 MG TABLET PO (09:33)
--- NOTE | 2024-10-18 10:04 | ED_ITS ---
HPI - Dizziness General Chief Complaint: Dizziness Stated Complaint: dizzy Time Seen by Provider: 10/18/24 09:10 Source: patient Mode of arrival: EMS Limitations: no limitations History of Present Illness HPI Narrative: This is a 74-year-old male that presents to the emergency department for dizziness. Reports when he woke up this morning went to stood up he felt very off balance. He could not walk due to balance issues. Reports associated nausea. Reports he has had a similar previous episode of vertigo. Denies vision changes, chest pain, shortness of breath, numbness, weakness. Related Data Home Medications ?Medication ?Instructions ?Recorded ?Confirmed ?Last Taken ?Type lansoprazole 15 mg capsule,delayed 15 mg PO DAILY 08/29/20 10/18/24 Unknown History release (Prevacid) multivit,calc,mins-folic 240 1 tablet PO DAILY 08/29/20 10/18/24 Unknown History mcg-vit K1 30 mcg-lycopene 300 mcg tablet (One-A-Day Men's Complete) Allergies Allergy/AdvReac Type Severity Reaction Status Date / Time empagliflozin (From AdvReac Intermediate Facial rash Verified 10/18/24 08:57 Jardiance) Review of Systems 2 Review of Systems: CONSTITUTIONAL: Denies fever EYES: Denies visual changes CARDIOVASCULAR: Denies chest pain RESPIRATORY: Denies dyspnea. GASTROINTESTINAL: Denies vomiting NEUROLOGIC: Denies headache, numbness, or weakness. All systems reviewed & are unremarkable except as noted in HPI and below PMFSH Past Medical History Medical History Wears glasses Impaired glucose tolerance Family History Family History Mother Patient's mother is in good health Sibling Patient's brother is in good health Family history of malignant neoplasm Father Family history of malignant neoplasm Other Arthritis Asthma Diabetes mellitus Hypertension Social History Social History Smoking packs per day: 1 Smoking cigarettes per day: 20.0 Years smoked: 25 Smoking pack-years: 25.00 Smoking status: Former smoker Tobacco type: cigarettes Second hand tobacco smoke exposure: No Smoking end date: 07/14/09 Alcohol intake: never Drinks per week: 3 Substance use: never Substance use type: does not use Do You Feel Safe in your Home?: Yes Lack of Transportation: No Lack of Food: Never True Current Housing: I Have Housing Concerned About Future Housing: No Difficulty Paying Gas/Electric Bills: No Difficulty Paying for Meds: No Currently Unemployed: No Education: High School Diploma/GED Difficulty w/ Childcare or Family Care: No Living arrangements: alone Gender identity (if verbalized by the patient): Male Spiritual care concerns: No Agree to blood products: Yes Exam 2 Narrative: GENERAL: Well-appearing, well-nourished, and in no acute distress. HEAD: Normocephalic, atraumatic. EYES: PERRLA and EOMI. ENT: Nares clear, no rhinorrhea or epistaxis. Mucous membranes moist. Oropharynx without tonsillar hypertrophy exudate or other lesions. Bilateral TMs pearly echavarria non-bulging NECK: Supple. No adenopathy or masses. CHEST: Clear to auscultation. No respiratory distress. No wheezes rales or rhonchi HEART: Regular rate and rhythm. No murmur heard. Normal peripheral pulses. ABDOMEN: Soft, nontender, nondistended, normal active bowel sounds. EXTREMITIES: Normal range of motion. No edema. Strength equal in bilateral upper and lower extremities (5/5) SKIN: Warm, dry, no rash. NEURO: No focal deficits. Alert and oriented x3. Cranial nerves 2-12 grossly intact. Normal [id number]. Normal [id number] PSYCH: Normal mood and affect Course Course Emergency Course: Patient family updated on workup. He continues to be very unsteady on his feet. Will consult hospitalist for admission Consultations Consultation #1: Spoke with hospitalist about patient and workup who accepts admission Date: 10/19/24 Vital Signs Vital signs: Vital Signs Temperature 97.8 F 10/18/24 08:51 Pulse Rate 64 10/18/24 08:51 Respiratory Rate 15 10/18/24 08:51 Pulse Oximetry 97 10/18/24 08:51 Oxygen Delivery Room Air 10/18/24 08:51 Temperature 98.4 F 10/19/24 08:00 Pulse Rate 77 10/19/24 08:00 Respiratory Rate 18 10/19/24 08:00 Blood Pressure 144/72 H 10/19/24 08:00 Pulse Oximetry 96 10/19/24 08:00 Oxygen Delivery Room Air 10/19/24 08:45 MDM - Dizziness MDM Narrative Medical decision making narrative: Patient presents to the emergency department for dizziness, unsteady gait. Onset earlier this morning when he woke up. His vitals are stable. He is neurologically intact. CBC and metabolic panel without concerning findings. CT brain without acute findings. Chest x-ray is normal. CTA head and neck also without acute findings. Patient family updated on workup. He continues to be very unsteady on his feet. Patient will be admitted for further evaluation/management Differential Diagnosis Differential diagnosis: Likely benign paroxysmal positional vertigo, orthostatic hypotension and cerebrovascular accident Lab Data Attestation: I reviewed the patient's lab results. 10/18/24 10:23 10/18/24 10:23 Labs: Lab Results 10/18/24 Range/Units 10:23 WBC 6.0 (4.5-10.0) K/mm3 RBC 4.59 L (4.6-6.20) M/mm3 Hgb 12.5 L (14.0-18.0) g/dL Hct 39.8 L (42.0-52.0) % MCV 86.7 (80-100) fl MCH 27.2 (26-34) pg MCHC 31.4 L (32-36) g/dl RDW 14.1 (11.5-14.5) % Plt Count 174 (150-375) k/mm3 MPV 11.2 H (7.4-10.4) fl Immature Gran % (Auto) 0.5 (0-0.5) % Neut % (Auto) 83.9 H (45.5-73.1) % Lymph % (Auto) 9.5 L (18.3-44.2) % Russell % (Auto) 5.3 (2.6-8.5) % Eos % (Auto) 0.5 (0-4.4) % Baso % (Auto) 0.3 (0.2-1.2) % Lymph # (Auto) 0.57 L (0.9-3.2) K/mm3 Russell # (Auto) 0.3 (0.1-0.6) K/mm3 Eos # (Auto) 0.0 (0-0.3) K/mm3 Baso # (Auto) 0.0 (0.0-0.1) K/mm3 Abs Immat Gran (auto) 0.03 (0.00-0.031) K/mm3 Absolute Neuts (auto) 5.0 (1.3-6.7) K/mm3 Absolute Nucleated RBC 0.000 (0.0-0.012) K/mm3 Nucleated RBC % 0.0 (0.0-0.2) % Sodium 141 (137-145) mmol/L Potassium 4.2 (3.4-5.0) mmol/L Chloride 102 (98-107) mmol/L Carbon Dioxide 30 (22-30) mmol/L Anion Gap 9 (4-12) mmol/L BUN 14 (9-20) mg/dL Creatinine 0.71 (0.7-1.3) mg/dL Estim Creat Clear Calc 99 ml/min Estimated GFR > 60 (59 - ) Glucose 117 H (65-110) mg/dL Calcium 9.2 (8.4-10.2) mg/dL Total Bilirubin 0.6 (0.2-1.3) mg/dL AST 20 (17-59) U/L ALT 24 (6-50) U/L Alkaline Phosphatase 55 (38-126) U/L Total Protein 8.0 (6.3-8.2) g/dL Albumin 4.7 (3.5-5.1) g/dL Imaging Data Radiologist's impression: ITS Impressions Head CT 10/18/24 09:23 IMPRESSION: No acute intracranial findings. Chest X-Ray 10/18/24 09:31 Impression: Normal chest. Head/Neck CTA 10/18/24 11:07 IMPRESSION: 1. Normal CTA head and neck. Percent stenosis per NASCET criteria is 0%. Critical Care Time Critical Care Time Critical Care Time: No Discharge Plan Discharge Clinical Impression: Dizziness, Unsteady gait Patient Disposition: Still a Patient Condition: Stable
[2024-10-18] MEDS: SODIUM CHLORIDE 0.9% IV 500 ML 999 ML IV CONT (10:09)
[2024-10-18 10:34] LABS: Basophils Percent Auto 0.3 % (0.2-1.2); Eosinophils Percent Auto 0.5 % (0-4.4); Hematocrit 39.8 % (42.0-52.0); Hemoglobin 12.5 g/dL (14.0-18.0); Immature Granulocyte Absolute 0.03 K/mm3 (0.00-0.031); Immature Granulocyte Percent A 0.5 % (0-0.5); Lymphocytes Absolute Auto 0.57 K/mm3 (0.9-3.2); Lymphocytes Percent Auto 9.5 % (18.3-44.2); Mean Corpuscular HGB Conc 31.4 g/dl (32-36); Mean Corpuscular Hemoglobin 27.2 pg (26-34); Mean Corpuscular Volume 86.7 fl (80-100); Mean Platelet Volume 11.2 fl (7.4-10.4); Monocytes Absolute Auto 0.3 K/mm3 (0.1-0.6); Monocytes Percent Auto 5.3 % (2.6-8.5); Neutrophils Percent Auto 83.9 % (45.5-73.1); Platelet Count Result 174 k/mm3 (150-375); Red Blood Count 4.59 M/mm3 (4.6-6.20); Red Cell Distribution Width 14.1 % (11.5-14.5)
[2024-10-18 10:45] LABS: Alanine Aminotransferase 24 U/L (6-50); Albumin Level 4.7 g/dL (3.5-5.1); Alkaline Phosphatase 55 U/L (38-126); Anion Gap 9 mmol/L (4-12); Aspartate Amino Transferase 20 U/L (17-59); Bilirubin,Total 0.6 mg/dL (0.2-1.3); Blood Urea Nitrogen 14 mg/dL (9-20); Calcium 9.2 mg/dL (8.4-10.2); Carbon Dioxide 30 mmol/L (22-30); Chloride 102 mmol/L (98-107); Estimated CRCL calculation 99 ml/min; Estimated Glomerular Filt Rate > 60; Glucose 117 mg/dL (65-110); Potassium 4.2 mmol/L (3.4-5.0); Sodium 141 mmol/L (137-145)
--- OUTSIDE RECORDS SUMMARY | 2024-10-18 11:39 | XMS_ITS | Clinical Summary ---
Author Organization [facility] Address [address] [place] [address] Care Team Providers Care Installation Drafter Name Role Phone Yung Koch Primary Care Provider [phone] Source Comments [facility],non-owned Affiliates and Associated Physician Practices is amultiple site organization consisting of ambulatory clinics and hospital sitesin [place], [place], [place] and [place]. This disclosure is being madepursuant to the Care Everywhere program and may not contain all information available regarding this patient. Last updated 18.[facility] Allergies No known active allergies Social History Tobacco Use Types Packs/Day Years Used Date Smoking Tobacco: Never Assessed Sex and Gender Information Value Date Recorded Sex Assigned at Not on file Gender Identity Not on file Sexual Orientation Not on file Last Filed Vital Signs Vital Sign Reading Time Taken Comments Blood Pressure 132/90 06/09/2020 2:54 PM WREATH INSPECTOR Pulse 70 06/09/2020 2:54 PM WREATH INSPECTOR Temperature 37.1 C (98.7 F) 06/09/2020 2:54 PM WREATH INSPECTOR Respiratory Rate 16 06/09/2020 2:54 PM WREATH INSPECTOR Oxygen Saturation 95% 06/09/2020 2:54 PM WREATH INSPECTOR Inhaled Oxygen Concentration - - Weight 113.4 kg (250 lb) 06/09/2020 2:54 PM WREATH INSPECTOR Height 180.3 cm (5' 11 ) 06/09/2020 2:54 PM WREATH INSPECTOR Body Mass Index 34.87 06/09/2020 2:54 PM WREATH INSPECTOR Plan of Treatment Health Maintenance Due Date Last Done Comments COLOGUARD (AGES 45-75) - COL ON CA SCREENING [...] (#1) 2024 DEPRESSION SCREENING 07/14/2024 MEDICARE AWV CALENDAR YEAR 2024 Respiratory Syncytial Virus (RSV) [...] to complete this topic MENINGOCOCCAL (Group B) VACC INE SHARED DECISION-MAKING Aged Out No longer eligibl e based on patient's age to complete this topic MENINGOCOCCAL GROUPS A/C/Y/W VACCINE Aged Out No longer eligible b ased on patient's age to complete this topic Care Teams Installation Drafter Relationship Specialty Start Date End Date Yung Koch DO [address] [place] [address] PCP - General Internal Medicine 06/09/20
--- OUTSIDE RECORDS SUMMARY | 2024-10-18 11:39 | XMS_ITS | Clinical Summary ---
Author Organization [facility] Address [address] [place] [address] Care Team Providers Care Poultry Sexer Name Role Phone Unknown, Notinfile Primary Care [...] complication, without long-term current use of insulin 02/02/2021 Assessment & Plan (04/05/2021 9:46 AM [...] primary care provider. Localized edema 02/02/2021 Immunizations Immunization Administration Dates Next Due Influenza, Quadrivalent, Hig [...] 74 02/14/2024 6:06 PM CDT Temperature 37.2 C (99 F) 02/14/2024 6:06 PM CDT Respiratory Rate 22 [...] 1949 Foot Exam 1949 Lipid Panel 1949 DTaP/Tdap/Td Vaccine (1 - Tdap) 1960 Hepatitis B Screening 1967 Pneumococcal vaccine 65+ (1 of 2 - PCV) 1968 Zoster Vaccine (1 of 2) 1999 Abdominal Aortic Aneurysm (A AA) Screen 2014 Well Visit 65+ 2014 Covid-19 Vaccine (2 - 2023-2 5 season) 2024 05/09/2021 Influenza Vaccine (#1) 2024 1, 09/22/2019, 05/10/2017, Additional history exists Insurance [facility] MDCR HMO REF [facility] MEDICARE ADVANTAGE Care Teams Poultry Sexer Relationship Specialty Start Date End Date Unknown, Notinfile PCP - General 02/14/24
--- OUTSIDE RECORDS SUMMARY | 2024-10-18 11:39 | XMS_ITS | Referral Summary ---
Author Organization [facility] Address [address] [place] [address] Care Team Providers Care Manufacturers Representative Name Role Phone Unknown, Notinfile Primary Care [...] Plan of Treatment Not on file Insurance [facility] MDCR HMO REF [facility] MEDICARE Address: [address] [address] [place] [address] [facility] MEDICARE ADVANTAGE [facility] Address: [address] [address] [place] [address] Care Teams Manufacturers Representative Relationship Specialty Start Date End Date Unknown, Notinfile PCP - General 02/14/24
--- NOTE | 2024-10-18 12:23 | PC.NURSE ---
patient was ambulated and was staggering, off balance, and had an unsteady gait.
--- NOTE | 2024-10-18 14:49 | PC.NURSE ---
Patient given urinal. family at bedside
--- NOTE | 2024-10-18 16:11 | ADMGEN ---
This patient, Theo Aguilar Jr., was admitted to Medical Room 256-. Patient/family oriented to hospital policies and general routines including ID bracelet, bed and alarms, visiting hours, pain management, procedures, bathroom and other care routines, personal items, smoking policy, room service/diet, and visiting hours. Information on how to activate the Rapid Response Team has been discussed. Patient/Family are encouraged to report perceived risks to care and to ask questions if they do not understand what they are told or what they should do.
--- NOTE | 2024-10-18 16:21 | PM.IMHP ---
H&P: HPI History of Present Illness Date/Time: 10/18/24 16:21 Chief Complaint: Dizziness Narrative: This is a 74-year-old male that presents to the emergency department for dizziness. Reports when he woke up this morning went to stood up he felt very off balance. He could not walk due to balance issues. Reports associated nausea. Reports he has had a similar previous episode of vertigo. Denies vision changes, chest pain, shortness of breath, numbness, weakness. In the ED his vitals were stable except for mild hypertension. Laboratory evaluation showed normal WBC hemoglobin was 12.5 platelet a [address] head was performed which showed no acute intracranial findings. Chest x-ray was clear. CTA head and neck was performed which was negative as well. He is admitted for further treatment. Review of Systems Review of Systems: - CONSTITUTIONAL: Denies weight loss, fever and chills. - HEENT: Denies changes in vision and hearing - RESPIRATORY: Denies SOB and cough. - CV: Denies palpitations and CP. - GI: Denies abdominal pain, nausea, vomiting and diarrhea. - : Denies dysuria and urinary frequency. - MSK: Denies myalgia and joint pain. - SKIN: Denies rash and pruritus. - NEUROLOGICAL: Denies headache and syncope. See HPI - PSYCHIATRIC: Denies recent changes in mood. Denies anxiety and depression. [facility] Past Medical History Medical History Wears glasses Impaired glucose tolerance Family History Family History Mother Patient's mother is in good health Sibling Patient's brother is in good health Family history of malignant neoplasm Father Family history of malignant neoplasm Other Arthritis Asthma Diabetes mellitus Hypertension Social History Social History Smoking packs per day: 1 Smoking cigarettes per day: 20.0 Years smoked: 25 Smoking pack-years: 25.00 Smoking status: Former smoker Tobacco type: cigarettes Second hand tobacco smoke exposure: No Smoking end date: 07/14/09 Alcohol intake: current Drinks per week: 3 Substance use: never Substance use type: does not use Lack of Transportation: No Lack of Food: Never True Current Housing: I Have Housing Concerned About Future Housing: No Difficulty Paying Gas/Electric Bills: No Difficulty Paying for Meds: No Currently Unemployed: No Education: High School Diploma/GED Difficulty w/ Childcare or Family Care: No Living arrangements: alone Gender identity (if verbalized by the patient): Male Spiritual care concerns: No Agree to blood products: Yes Meds Home Medications and Allergies Home Medications ?Medication ?Instructions ?Recorded ?Confirmed ?Type lansoprazole 15 mg capsule,delayed 15 mg PO DAILY 08/29/20 08/09/24 History release (Prevacid) multivit,calc,mins-folic 240 1 tablet PO DAILY 08/29/20 08/09/24 History mcg-vit K1 30 mcg-lycopene 300 mcg tablet (One-A-Day Men's Complete) lancets (Accu-Chek Fastclix Lancet #102 ea 04/29/23 08/09/24 Rx Drum) lisinopril 40 mg tablet See Rx Instructions .Route 04/19/24 08/09/24 Rx .COMPLEX #90 tabs amoxicillin 875 mg-potassium 1 tablet PO Q12H #14 tabs 08/02/24 08/09/24 Rx clavulanate 125 mg tablet dextromethorphan-guaifenesin 30 1 tablet PO Q12H PRN cough #30 tabs 08/09/24 08/09/24 Rx mg-600 mg tablet extended [id number] hr (Mucinex DM) fluticasone propionate 50 2 spray intranasal DAILY #16 mL 08/09/24 08/09/24 Rx mcg/actuation nasal spray,suspension (Flonase Allergy Relief) semaglutide 2 mg/dose (8 mg/3 mL) 2 mg (0.75 mL) subcut WEEKLY #3 mL 08/10/24 Rx subcutaneous pen injector (Ozempic) blood sugar diagnostic (Accu-Chek #100 ea 10/08/24 Rx Guide test strips) blood-glucose meter #1 ea 10/08/24 Rx Allergies Allergy/AdvReac Type Severity Reaction Status Date / Time empagliflozin (From AdvReac Intermediate Facial rash Verified 10/18/24 08:57 Jardiance) Vital Signs Vital Signs - 24 hr 10/18/24 08:51 10/18/24 09:45 10/18/24 09:48 Temperature 97.8 F Pulse Rate 64 60 57 L Respiratory Rate 15 14 Blood Pressure 141/88 H 143/77 H Pulse Oximetry 97 97 Oxygen Delivery Room Air 10/18/24 09:49 10/18/24 09:51 10/18/24 11:00 Temperature Pulse Rate 60 68 62 Respiratory Rate 18 Blood Pressure 159/90 H 166/101 H 167/87 H Pulse Oximetry 98 Oxygen Delivery 10/18/24 12:30 10/18/24 13:58 Temperature Pulse Rate 60 60 Respiratory Rate 18 16 Blood Pressure 139/76 Pulse Oximetry 98 97 Oxygen Delivery Exam Narrative: GENERAL: The patient is well developed, not in acute distress HEENT: Nonicteric sclerae, PERRLA, EOMI. Oropharynx clear. Moist mucous membranes. Conjunctivae appear well perfused. CHEST: Chest wall is nontender. HEART: Regular rate and rhythm without murmur, rubs, or gallops LUNGS: Clear to auscultation bilaterally. no respiratory distress ABDOMEN: Soft, positive bowel sounds, non-tender, no organomegaly. SKIN: No rash, no excessive bruising, petechiae, or purpura. NEUROLOGIC: Cranial nerves II-XII intact, alert and oriented x 3, no gross motor deficits EXTREMITIES: no edema, cyanosis or clubbing H&P: Results Labs Labs: Short CBC 10/18/24 Range/Units 10:23 WBC 6.0 (4.5-10.0) K/mm3 Hgb 12.5 L (14.0-18.0) g/dL Hct 39.8 L (42.0-52.0) % Plt Count 174 (150-375) k/mm3 BMP 10/18/24 10:23 Sodium 141 Potassium 4.2 Chloride 102 Carbon Dioxide 30 BUN 14 Creatinine 0.71 Glucose 117 H Calcium 9.2 Liver Function 10/18/24 Range/Units 10:23 Total Bilirubin 0.6 (0.2-1.3) mg/dL AST 20 (17-59) U/L ALT 24 (6-50) U/L Alkaline Phosphatase 55 (38-126) U/L Albumin 4.7 (3.5-5.1) g/dL Assessment and Plan Assessment and plan (1) Essential hypertension: Code(s): I10 - Essential (primary) hypertension Status: Acute (2) Hyperlipidemia: Code(s): E78.5 - Hyperlipidemia, unspecified Status: Acute (3) Type 2 diabetes mellitus: Code(s): E11.9 - Type 2 diabetes mellitus without complications Status: Acute (4) Gastroesophageal reflux disease: Code(s): K21.9 - Gastro-esophageal reflux disease without esophagitis Status: Acute (5) Peripheral neuropathy: Qualifiers: Peripheral neuropathy type: polyneuropathy associated with underlying disease Qualified Code(s): G63 - Polyneuropathy in diseases classified elsewhere Code(s): G62.9 - Polyneuropathy, unspecified Status: Acute (6) ELSA (obstructive sleep apnea): Code(s): G47.33 - Obstructive sleep apnea (adult) (pediatric) Status: Acute (7) Dizziness: Code(s): R42 - Dizziness and giddiness Status: Acute Plan This is a 74-year-old male that presents to the emergency department for dizziness. Reports when he woke up this morning went to stood up he felt very off balance. He could not walk due to balance issues. Reports associated nausea. Reports he has had a similar previous episode of vertigo. Denies vision changes, chest pain, shortness of breath, numbness, weakness. In the ED his vitals were stable except for mild hypertension. Laboratory evaluation showed normal WBC hemoglobin was 12.5 platelet a [address] head was performed which showed no acute intracranial findings. Chest x-ray was clear. CTA head and neck was performed which was negative as well. He is admitted for further treatment. Dizziness onset CT head and CTA negative. Currently improved meclizine and IV fluid. Check orthostatic vitals and monitor. Meclizine p.r.n. for now and admitted under observation status Type 2 diabetes A1c 8.20 July 2024. SSI added he takes Ozempic at home Hypertension home medication Hyperlipidemia check lipid panel not on statin at home Prophylaxis SCD Code status full code Hospitalist MIPS Advance Care Plan I have confirmed that the patient's Advanced Care Plan is present, code status is documented, or surrogate decision maker is listed in patient medical record.: Yes Medication Reconciliation I have utilized all available resources to obtain, update and review the patients current medications (includes all prescriptions, OTC, herbals, cannabis, and nutritional supplements).: Yes
[2024-10-18 16:42] LABS: Glucose Point of Care 174 mg/dl (65-105)
[2024-10-18 21:08] LABS: Glucose Point of Care 91 mg/dl (65-105)
[2024-10-19] VITALS (7 sets, daily range): BP systolic 105–161; BP diastolic 70–81; PULSE 65–95; RESP 16–19; TEMP 36.6–36.9; O2SAT 60–100
[2024-10-19 05:28] LABS: Cholesterol 145 mg/dL (0-200); HDL Direct 47 mg/dL; Triglycerides 91 mg/dL (<150)
[2024-10-19 05:40] LABS: LDL Cholesterol Direct 70 mg/dL
[2024-10-19 08:41] LABS: Glucose Point of Care 107 mg/dl (65-105)
[2024-10-19] MEDS: ASPIRIN 325 MG TABLET PO (08:46)
[2024-10-19] MEDS: PANTOPRAZOLE 40 MG TABLET PO (08:46)
[2024-10-19] MEDS: lisinopriL 20 MG TABLET BY MOUTH (08:46)
--- NOTE | 2024-10-19 12:10 | PM.IMPN ---
Progress Note: A&P Assessment and Plan (1) Essential hypertension: Code(s): I10 - Essential (primary) hypertension Status: Acute (2) Hyperlipidemia: Code(s): E78.5 - Hyperlipidemia, unspecified Status: Acute (3) Type 2 diabetes mellitus: Code(s): E11.9 - Type 2 diabetes mellitus without complications Status: Acute (4) Gastroesophageal reflux disease: Code(s): K21.9 - Gastro-esophageal reflux disease without esophagitis Status: Acute (5) Peripheral neuropathy: Qualifiers: Peripheral neuropathy type: polyneuropathy associated with underlying disease Qualified Code(s): G63 - Polyneuropathy in diseases classified elsewhere Code(s): G62.9 - Polyneuropathy, unspecified Status: Acute (6) ELSA (obstructive sleep apnea): Code(s): G47.33 - Obstructive sleep apnea (adult) (pediatric) Status: Acute (7) Dizziness: Code(s): R42 - Dizziness and giddiness Status: Acute Plan This is a 74-year-old male that presents to the emergency department for dizziness. Reports when he woke up this morning went to stood up he felt very off balance. He could not walk due to balance issues. Reports associated nausea. Reports he has had a similar previous episode of vertigo. Denies vision changes, chest pain, shortness of breath, numbness, weakness. In the ED his vitals were stable except for mild hypertension. Laboratory evaluation showed normal WBC hemoglobin was 12.5 platelet a [address] head was performed which showed no acute intracranial findings. Chest x-ray was clear. CTA head and neck was performed which was negative as well. He is admitted for further treatment. Dizziness onset CT head and CTA negative. Currently improved meclizine and IV fluid. Check orthostatic vitals and monitor. Meclizine p.r.n. for now and admitted under observation status. Will further evaluate with MRI brain possible TIA. Will start aspirin. Neurology consult Type 2 diabetes A1c 8.20 July 2024. SSI added he takes Ozempic at home Hypertension home medication Hyperlipidemia check lipid panel not on statin at home. Add statin LDL at 70 Prophylaxis SCD Code status full code Subjective Date/time seen: 10/19/24 12:10 Interval history: Patient continues to have intermittent dizziness. Reported facial droop weakness of left side by family noted prior to arrival to ED Review of Systems Review of Systems: All systems reviewed & are unremarkable except as noted in HPI and below Exam Narrative: GENERAL: The patient is well developed, not in acute distress HEENT: Nonicteric sclerae, PERRLA, EOMI. Oropharynx clear. Moist mucous membranes. Conjunctivae appear well perfused. CHEST: Chest wall is nontender. HEART: Regular rate and rhythm without murmur, rubs, or gallops LUNGS: Clear to auscultation bilaterally. no respiratory distress ABDOMEN: Soft, positive bowel sounds, non-tender, no organomegaly. SKIN: No rash, no excessive bruising, petechiae, or purpura. NEUROLOGIC: Cranial nerves II-XII intact, alert and oriented x 3, no gross motor deficits EXTREMITIES: no edema, cyanosis or clubbing Objective Data Vital Signs Vital Signs: Vital Signs - 24 hr 10/18/24 12:30 10/18/24 13:58 10/18/24 16:00 Temperature Pulse Rate 60 60 Respiratory Rate 18 16 Blood Pressure 139/76 Pulse Oximetry 98 97 Oxygen Delivery Room Air 10/18/24 16:00 10/18/24 20:00 10/18/24 20:00 Temperature 98.1 F Pulse Rate 63 61 65 Respiratory Rate 18 16 Blood Pressure 137/72 Pulse Oximetry 95 96 Oxygen Delivery Room Air 10/18/24 20:00 10/18/24 20:00 10/18/24 20:19 Temperature 98.8 F Pulse Rate 61 Respiratory Rate 16 Blood Pressure 134/63 134/63 137/71 Pulse Oximetry 96 Oxygen Delivery 10/18/24 20:19 10/18/24 23:48 10/19/24 00:00 Temperature 98.8 F Pulse Rate 77 67 Respiratory Rate 16 Blood Pressure 128/70 151/80 H Pulse Oximetry 94 Oxygen Delivery 10/19/24 04:00 10/19/24 04:00 10/19/24 08:00 Temperature 98.5 F Pulse Rate 65 67 66 Respiratory Rate 16 Blood Pressure 126/74 Pulse Oximetry 94 Oxygen Delivery 10/19/24 08:00 10/19/24 08:45 10/19/24 11:40 Temperature 98.4 F Pulse Rate 77 Respiratory Rate 18 Blood Pressure 144/72 H Pulse Oximetry 96 Oxygen Delivery Room Air Room Air Intake/Output Intake/Output: Intake & Output 04/05/10/17/24 10/18/24 10/19/24 23:59 23:59 23:59 23:59 Intake Total 740 640 Balance 740 640 Meds/Results Medications: Active Medications Generic Name Dose Route Start Last Admin Trade Name Freq PRN Reason Stop Dose Admin Atorvastatin Calcium 40 mg 10/19/24 21:00 Atorvastatin 40 Mg Tablet PO HS AMOR Lisinopril 20 mg 10/19/24 09:00 10/19/24 08:46 Lisinopril 20 Mg Tablet BY MOUTH 20 mg DAILY AMOR Administration Meclizine HCl 12.5 mg 10/18/24 16:25 Meclizine Hcl 12.5 Mg Tablet PO QID PRN Dizziness Pantoprazole Sodium 40 mg 10/19/24 09:00 10/19/24 08:46 Pantoprazole 40 Mg Tablet PO 40 mg QAM AMOR Administration Radiology Results: ITS Impressions Head CT 10/18/24 09:23 IMPRESSION: No acute intracranial findings. Chest X-Ray 10/18/24 09:31 Impression: Normal chest. Head/Neck CTA 10/18/24 11:07 IMPRESSION: 1. Normal CTA head and neck. Percent stenosis per NASCET criteria is 0%. Labs Labs: Laboratory Results - last 24 hr 10/18/24 10/18/24 10/19/24 16:23 20:15 04:55 POC Capillary Glucose 174 H 91 Triglycerides 91 Cholesterol 145 LDL Cholesterol Direct 70 HDL Direct 47 10/19/24 08:04 POC Capillary Glucose 107 H Triglycerides Cholesterol LDL Cholesterol Direct HDL Direct
[2024-10-19] MEDS: LORazepam INJ (*CRX) 2 MG/ML VIAL 0.5 MG IV PUSH (12:33)
--- NOTE | 2024-10-19 12:39 | P.CONNEU_ITS ---
Assessment and Plan Assessment and plan (1) Dizziness: Code(s): R42 - Dizziness and giddiness Status: Acute (2) Peripheral neuropathy: Qualifiers: Peripheral neuropathy type: polyneuropathy associated with underlying disease Qualified Code(s): G63 - Polyneuropathy in diseases classified elsewhere Code(s): G62.9 - Polyneuropathy, unspecified Status: Acute (3) Obesity: Code(s): E66.9 - Obesity, unspecified Status: Acute (4) Hyperlipidemia: Code(s): E78.5 - Hyperlipidemia, unspecified Status: Acute (5) Transient ischemic attack, posterior circulation, acute: Code(s): G45.8 - Other transient cerebral ischemic attacks and related syndromes Status: Acute Plan 1. Dizziness with description as if he is off the balance relating to possibly diabetic neuropathy 2. Rule out the possibility of the intracranial lesion superimposed on the diabetic neuropathy 3 possibility of TIA. 4. Once MRI is documented and there is no posterior fossa lesion or involvement secondary to stroke he will benefit from continuation of the treatment as such in addition will be scheduled for the EMG nerve conduction study as an outpatient. MRI will definitely help us in further decision. If MRI happens to be abnormal in the posterior fossa and obviously he will need the echocardiogram as Well. Consult date: 10/19/24 HPI: Theo Aguilar Jr. is a 74 year old male Has been admitted to the hospital through the emergency room with the complaints of dizziness. Reportedly he woke up in the morning and felt off balance when he stood up and also could not ambulate ,he gave no history of associated nausea or vomiting but did report that he has had a similar previous episode of vertigo. He has been taking lansoprazole 15mg daily in addition to Ozempic once in a week injection. He has history of 25 years smoked with smoking pack-years of 25 but at present is a former smoker and does not drink alcohol. On initial exam in the emergency room he had no gross neurological deficit ,his vital signs were normal, his evaluation included CBC which was normal BMP was normal,and initial CT scan of the head revealed no bleed or any space-occupying lesion chest x-ray was negative ,head and neck CTA was also negative ,subsequently on the floor his exam was again nonfocal , has ongoing history of hyperlipidemia, type 2 diabetes mellitus, GERD, in addition to peripheral neuropathy. Review of Systems 2 Review of Systems: All systems reviewed & are unremarkable except as noted in HPI and below PMFSH Past Medical History Medical History Wears glasses Impaired glucose tolerance Family History Family History Mother Patient's mother is in good health Sibling Patient's brother is in good health Family history of malignant neoplasm Father Family history of malignant neoplasm Other Arthritis Asthma Diabetes mellitus Hypertension Social History Social History Smoking packs per day: 1 Smoking cigarettes per day: 20.0 Years smoked: 25 Smoking pack-years: 25.00 Smoking status: Former smoker Tobacco type: cigarettes Second hand tobacco smoke exposure: No Smoking end date: 07/14/09 Alcohol intake: never Drinks per week: 3 Substance use: never Substance use type: does not use Do You Feel Safe in your Home?: Yes Lack of Transportation: No Lack of Food: Never True Current Housing: I Have Housing Concerned About Future Housing: No Difficulty Paying Gas/Electric Bills: No Difficulty Paying for Meds: No Currently Unemployed: No Education: High School Diploma/GED Difficulty w/ Childcare or Family Care: No Living arrangements: alone Gender identity (if verbalized by the patient): Male Spiritual care concerns: No Agree to blood products: Yes Meds Home Medications and Allergies Home Medications ?Medication ?Instructions ?Recorded ?Confirmed ?Type lansoprazole 15 mg capsule,delayed 15 mg PO DAILY 08/29/20 10/18/24 History release (Prevacid) multivit,calc,mins-folic 240 1 tablet PO DAILY 08/29/20 10/18/24 History mcg-vit K1 30 mcg-lycopene 300 mcg tablet (One-A-Day Men's Complete) lancets (Accu-Chek Fastclix Lancet #102 ea 04/29/23 10/18/24 Rx Drum) lisinopril 40 mg tablet See Rx Instructions .Route 04/19/24 10/18/24 Rx .COMPLEX #90 tabs semaglutide 2 mg/dose (8 mg/3 mL) 2 mg (0.75 mL) subcut WEEKLY #3 mL 08/10/24 10/18/24 Rx subcutaneous pen injector (Ozempic) blood sugar diagnostic (Accu-Chek #100 ea 10/08/24 10/18/24 Rx Guide test strips) blood-glucose meter #1 ea 10/08/24 10/18/24 Rx Allergies Allergy/AdvReac Type Severity Reaction Status Date / Time empagliflozin (From AdvReac Intermediate Facial rash Verified 10/18/24 08:57 Jardiance) Vital Signs Vital Signs - 24 hr 10/18/24 13:58 10/18/24 16:00 10/18/24 16:00 Temperature 36.7 C Pulse Rate 60 63 Respiratory Rate 16 18 Blood Pressure 139/76 137/72 Pulse Oximetry 97 95 Oxygen Delivery Room Air 10/18/24 20:00 10/18/24 20:00 10/18/24 20:00 Temperature Pulse Rate 61 65 Respiratory Rate 16 Blood Pressure 134/63 Pulse Oximetry 96 Oxygen Delivery Room Air 10/18/24 20:00 10/18/24 20:19 10/18/24 20:19 Temperature 37.1 C Pulse Rate 61 Respiratory Rate 16 Blood Pressure 134/63 137/71 128/70 Pulse Oximetry 96 Oxygen Delivery 10/18/24 23:48 10/19/24 00:00 10/19/24 04:00 Temperature 37.1 C Pulse Rate 77 67 65 Respiratory Rate 16 Blood Pressure 151/80 H Pulse Oximetry 94 Oxygen Delivery 10/19/24 04:00 10/19/24 08:00 10/19/24 08:00 Temperature 36.9 C 36.9 C Pulse Rate 67 66 77 Respiratory Rate 16 18 Blood Pressure 126/74 144/72 H Pulse Oximetry 94 96 Oxygen Delivery 10/19/24 08:45 10/19/24 11:40 10/19/24 11:52 Temperature Pulse Rate Respiratory Rate Blood Pressure Pulse Oximetry Oxygen Delivery Room Air Room Air Room Air 10/19/24 12:00 Temperature 36.8 C Pulse Rate 84 Respiratory Rate 19 Blood Pressure 105/80 Pulse Oximetry 100 Oxygen Delivery Exam 2 Narrative: exam revealed him to be awake alert oriented x3, speech not dysphasic not dysarthric not dysphonic, obviously overweight sitting at the edge of the bed and eating his lunch, head normocephalic with no bruit, ear nose throat examination normal, neck supple with no cervical bruit no thyromegaly no lymphadenopathy, heart regular with no murmur, lungs clear to auscultation with no rhonchi or crepitations, abdomen is soft protuberant, neurologically he is awake alert oriented x3, speech not dysphasic not dysarthric not dysphonic, pupils round regular react to light equally, feels the vision full in all 4 quadrants, extraocular movements are full in all 4 gazes without any nystagmus, facial sensation intact, face symmetrical, and tongue in the oral cavity without any fasciculations, motor examination revealed him to have no gross drift against gravity of the upper extremities 1 or other, strength was generally 5/5, reflexes were sluggish in the lower extremities, and plantars were downgoing he had decreased sensation distally. There was no evidence of ataxia or dysmetria on finger to nose to finger. Results Labs 10/18/24 10:23 10/18/24 10:23
[2024-10-19 13:46] LABS: Glucose Point of Care 75 mg/dl (65-105)
[2024-10-19 17:04] LABS: Glucose Point of Care 147 mg/dl (65-105)
[2024-10-19] MEDS: ATORVASTATIN 40 MG TABLET PO (21:33)
[2024-10-19 21:50] LABS: Glucose Point of Care 105 mg/dl (65-105)
[2024-10-20] VITALS: BP 135/50; PULSE 68; PULSE 70; RESP 16; TEMP 36.7; O2SAT 95
[2024-10-20 04:00] VITALS: BP 129/71; PULSE 64; PULSE 71; RESP 16; TEMP 37; O2SAT 94
[2024-10-20 08:00] VITALS: BP 128/74; PULSE 68; RESP 16; TEMP 36.8; O2SAT 94
[2024-10-20 08:10] LABS: Glucose Point of Care 117 mg/dl (65-105)
[2024-10-20] MEDS: ASPIRIN 81 MG ENTERIC TABLET PO (08:32)
[2024-10-20] MEDS: lisinopriL 20 MG TABLET BY MOUTH (08:32)
[2024-10-20] MEDS: PANTOPRAZOLE 40 MG TABLET PO (08:32)
[2024-10-20] MEDS: LORazepam INJ (*CRX) 2 MG/ML VIAL IV PUSH (09:27)
[2024-10-20 12:18] LABS: Glucose Point of Care 161 mg/dl (65-105)
--- NOTE | 2024-10-20 13:30 | P.DS_ITS ---
DS: Admitting Diagnosis Discharge Date 10-20-2024 Admitting Diagnosis Dizziness (TIA vs Vertigo) DS: Discharge Diagnosis Discharge Diagnosis (1) Essential hypertension: Code(s): I10 - Essential (primary) hypertension Status: Acute (2) Hyperlipidemia: Code(s): E78.5 - Hyperlipidemia, unspecified Status: Acute (3) Type 2 diabetes mellitus: Code(s): E11.9 - Type 2 diabetes mellitus without complications Status: Acute (4) Gastroesophageal reflux disease: Code(s): K21.9 - Gastro-esophageal reflux disease without esophagitis Status: Acute (5) Peripheral neuropathy: Qualifiers: Peripheral neuropathy type: polyneuropathy associated with underlying disease Qualified Code(s): G63 - Polyneuropathy in diseases classified elsewhere Code(s): G62.9 - Polyneuropathy, unspecified Status: Acute (6) ELSA (obstructive sleep apnea): Code(s): G47.33 - Obstructive sleep apnea (adult) (pediatric) Status: Acute (7) Dizziness: Code(s): R42 - Dizziness and giddiness Status: Acute Plan Disposition: discharged to home DS: Summary Hospital Course Reason for hospitalization: Dizziness (TIA vs Vertigo) Hospital Course: Patient was a 74-year-old male that presents to the emergency department for dizziness. Reports when he woke up this morning went to stood up he felt very off balance. He could not walk due to balance issues. Reports associated nausea. Reports he has had a similar previous episode of vertigo. Had denied vision changes, chest pain, shortness of breath, numbness, weakness. In the ED Laboratory evaluation showed normal WBC hemoglobin was 12.5 platelet a [address] head was performed which showed no acute intracranial findings. Chest x-ray was clear. CTA head and neck was performed which was negative as well. He is admitted for further treatment. Patient CT head and CTA negative and his symptoms had improved on meclizine and IV fluid. Orthostatic were checked and negative, Meclizine p.r.n. was continued and a MRI was perfromed that showed normal aging brain. Neurology was consulted for further recommendations who requested follow-up outpatient and scheduling a Nerve conduction study O/P. Patient LDL 70 and he was Initiated on atorvastatin as well as low-dose ASA 81 mg daily. patient seen and assessed day discharge symptoms greatly improved he was discharged home with plans to follow up with Neurology outpatient as well as prescribed meclizine as needed. also recommended if symptoms persisted could also do referral to ENT for further evaluation. Patient with no further complaints patient discharged home Status at Discharge Functional status at discharge: independent ambulation Overall status at discharge: patient is back to baseline Time Spent with Patient Time attestation: Total time spent providing and/or coordinating discharge services: Time spent: Greater than 30 minutes Exam Narrative: GENERAL: The patient is well developed, not in acute distress HEENT: Nonicteric sclerae, PERRLA, EOMI. Oropharynx clear. Moist mucous membranes. Conjunctivae appear well perfused. CHEST: Chest wall is nontender. HEART: Regular rate and rhythm without murmur, rubs, or gallops LUNGS: Clear to auscultation bilaterally. no respiratory distress ABDOMEN: Soft, positive bowel sounds, non-tender, no organomegaly. SKIN: No rash, no excessive bruising, petechiae, or purpura. NEUROLOGIC: Cranial nerves II-XII intact, alert and oriented x 3, no gross motor deficits EXTREMITIES: no edema, cyanosis or clubbing DS: Data Data Completed and Pending Labs on day of discharge: Labs from last 24 hours 10/20/24 10/20/24 10/19/24 12:08 08:02 20:00 POC Capillary Glucose 161 H 117 H 105 10/19/24 10/19/24 16:38 12:19 POC Capillary Glucose 147 H 75 Imaging Radiologist's impression: CTA brain carotid Ordering provider: Supriya Mederos PA-C History: . dizziness . Comparison: October 28, 2024 Technique: CT angiogram head and neck was performed following timed intravenous injection of contrast. Thin slice axial images and reformatted coronal images were obtained. Three dimensional reformatted images of the brain were also obtained using a [employer] workstation. Radiation reduction technique utilized.The dose-length product was 1171.52 mGy-cm. 100 mL Omnipaque 350 was given IV. FINDINGS: HEAD: --ANTERIOR AND MIDDLE CEREBRAL ARTERIES AND BRANCHES: Normal caliber and contour. --INTERNAL CAROTID ARTERIES: Mild atheromatous disease but no significant stenosis. No occlusion. --BASILAR ARTERY AND BRANCHES: Normal caliber and contour. No atheromatous disease. --POSTERIOR CEREBRAL ARTERIES: Normal caliber and contour --POSTERIOR COMMUNICATING ARTERIES: The right is demonstrated. The left is not visualized which is probably related to congenital absence or small size. --ANEURYSM: None visualized. --BRAIN: Please refer to report of CT head performed the same day. --BONES AND SUPERFICIAL SOFT TISSUES: Please refer to report of CT head performed the same day. --PARANASAL SINUSES AND MASTOIDS: Please refer to report of CT head done the . NECK: --RIGHT CERVICAL CAROTID SYSTEM: Normal caliber and contour. Percent stenosis per NASCET criteria is 0%. No carotid dissection. Otherwise, no significant atheromatous disease or stenosis of the cervical carotid system. --LEFT CERVICAL CAROTID SYSTEM: Normal caliber and contour. Percent stenosis per NASCET criteria is 0%. No carotid dissection. Otherwise, no significant atheromatous disease or stenosis of the cervical carotid system. --VERTEBRAL ARTERIES: Normal caliber and contour. --VISUALIZED AORTIC ARCH AND BRANCHING VESSELS: Normal caliber and contour. No significant atheromatous disease. --SOFT TISSUES: Nodule in the right lobe of the thyroid with calcification. Ultrasound evaluation advised. --CERVICAL SPINE: Age appropriate degenerative changes. IMPRESSION: 1. Normal CTA head and neck. Percent stenosis per NASCET criteria is 0%. EXAMINATION: MR brain/brain stem wo/w con DATE: 10/20/2024 10:25 INDICATION: Transient ischemic episode TECHNIQUE: Magnetic resonance imaging (MRI) of the brain and brainstem was performed without and with 20 mL ProHance intravenous contrast. Sequences included sagittal and axial T1-weighted SE, axial diffusion-weighted FS SE, axial 3D SWAN, axial T2-weighted FLAIR, and axial T2-weighted FSE. Postcontrast axial and coronal T1-weighted SE was obtained. Apparent diffusion coefficient (ADC) maps were created. COMPARISON: Head CT and CT angiogram dated 10/18/2024 FINDINGS: There are no areas of restricted diffusion to suggest acute infarction. No intracranial hemorrhage or abnormal intracranial mass lesion. There are scattered areas of nonspecific increased T2-weighted signal intensity in the cerebral white matter, predominantly involving the deep and periventricular white matter which is within normal limits for age and likely sequela of chronic small vessel ischemic disease. There are no intraparenchymal signal abnormalities seen on the other pulse sequences. The ventricles are symmetric and normal in size. There are no abnormal extra-axial fluid collections. Flow voids are seen in the cerebral arteries on the T2-weighted sequences consistent with their expected patency. Mild mucosal thickening in the bilateral ethmoid and maxillary sinuses. Visualized orbits and soft tissues are unremarkable. There are no areas of abnormal enhancement on the post contrast images. IMPRESSION: 1. Normal aging brain. No acute intracranial process or abnormally enhancing brain lesions. Discharge Plan Discharge Attending physician on discharge: Javier Lang Consulting providers: Abraham Larson; Zohreh Bravo; Ashutosh Deutsch; Olegario Davidson; Tacos Rosas; Johnathan Trammell; Jose Luis Casarez Discharging Clinician: Zohreh Bravo Anticipated Discharge Date/Time: 10/20/24 13:18 Patient Disposition: Home Activity: may shower and as tolerated Diet: heart healthy Discharge Instructions: TIA vs Vertigo (dizziness) * MRI should normal aging brain and no indication of an acute stroke * I have started a daily aspirin and Statin please take as prescribed * I have prescribed Meclizine as needed for dizziness * I have also provided an order for a Nerve conduction study to be completed outpatient and you can follow-up with Neurology their information has been provided How can you care for yourself at home? ? Keep track of any new symptoms or changes in your symptoms. ? Rest until you feel better. ? Be safe with medicines. Take your medicines exactly as prescribed. Call your doctor if you think you are having a problem with your medicine. ? Do not drive after taking a prescription pain medicine. ? Ensure to follow-up with primary care physician as indicated and provide updated medication list provided to you at discharge. When should you call for help? Call 911 anytime you think you may need emergency care. For example, call if: ? You passed out (lost consciousness). Call your doctor now or seek immediate medical care if: ? You have new symptoms like fever, difficulty breathing, Chest pain, vomiting, or rash. ? You have new or different pain. ? You are confused and are having trouble thinking clearly. ? Your symptoms are getting worse. Watch closely for changes in your health, and be sure to contact your doctor if: ? You do not get better as expected. Patient Instructions: Antibiotic Form, Transient Ischemic Attack (DC), Vertigo (DC), Dizziness (GEN) Patient Language: Bahamian Stand Alone Forms: General Discharge Information Follow-up/Referrals: Donell Cohen MD [Primary Care Provider] - 2 Weeks Discharge Medications: New aspirin 81 mg Tablet,Delayed Release (Dr/Ec) 81 mg PO QAM Qty: 30 0RF atorvastatin 40 mg Tablet 40 mg PO HS Qty: 30 0RF meclizine 12.5 mg Tablet 12.5 mg PO QID PRN (Reason: Dizziness) Qty: 30 0RF Continued lansoprazole [Prevacid] 15 mg Capsule,Delayed Release(Dr/Ec) 15 mg PO DAILY multivit,calc,zly-CD-Y3-lycop [One-A-Day Men's Complete] 240 mcg-30 mcg- 300 mcg Tablet 1 tablet PO DAILY (DME) lancets [Accu-Chek Fastclix Lancet Drum] Misc See Rx Instructions .ROUTE .COMPLEX Qty: 102 0RF Dose Instruction: USE TO CHECK BLOOD SUGAR ONCE DAILY Rx Instructions: USE TO CHECK BLOOD SUGAR ONCE DAILY lisinopril 40 mg tablet See Rx Instructions .ROUTE .COMPLEX Qty: 90 0RF Dose Instruction: TAKE 1 TABLET BY MOUTH DAILY Rx Instructions: TAKE 1 TABLET BY MOUTH DAILY Ozempic 2 mg/dose (8 mg/3 mL) pen injector 2 mg subcut WEEKLY Qty: 3 5RF Patient Comments: On Friday's (DME) blood-glucose meter Misc See Rx Instructions .ROUTE .MEDSUPPLY Qty: 1 0RF Rx Instructions: As directed (DME) Accu-Chek Guide test strips Strip See Rx Instructions .Route Qty: 100 1RF Rx Instructions: use to check blood sugar day Other Ambulatory Orders: Nerve Conduction Study EMG (Routine) Timeframe: 1 Month Location: Determined by Patient Ordered By: Zohreh Bravo Date of admission: 10/18/24 14:22 Primary Care Provider: Donell Cohen Admitting Provider: Abhishek Shultz Attending physician on admission: Javier Lang Condition: Stable Quality -Patient's previous records reviewed on admission -ER notes reviewed in detail on admission -discussed all findings and current treatment plan with patient/Family/POA -Consultations reviewed for recommendations -Patient's disposition for safe discharge discussed with clinical case manager Dictation performed by [employer] direct speech recognition software, therefore mid level java developer variants and typographical errors may occur. Hospitalist MIPS Heart Failure (Exclusion) Patient has history of Heart Transplant or Left Ventricular Assistive Device?: No IF YES, STOP HERE Heart Failure (Qualifier) Patient has current or prior documentation of LVEF less than or equal to 40%, or mod/servere depressed LVSF?: No IF NO, STOP HERE
== END 2024-10-20 14:00 | disposition home or self-care (01) ==
LOC: ANHED 10:34 → ANH2MED 16:05
PROVIDERS: Internal Medicine; Admitting Provider Internal Medicine; Emergency Provider Physician Assistant; PCP Family Medicine; Visit Provider Internal Medicine
DX: R42 Dizziness and giddiness (principal); R26.81 Unsteadiness on feet; E11.42 Type 2 diabetes mellitus with diabetic polyneuropathy; I10 Essential (primary) hypertension; E78.5 Hyperlipidemia, unspecified; K21.9 Gastro-esophageal reflux disease without esophagitis; G47.33 Obstructive sleep apnea (adult) (pediatric); E66.9 Obesity, unspecified; Z68.34 Body mass index [BMI] 34.0-34.9, adult; Z87.891 Personal history of nicotine dependence; Z79.85 Long-term (current) use of injectable non-insulin antidiabetic drugs; Z79.899 Other long term (current) drug therapy
CPT/HCPCS: 36415; 70450; 70496; 70498; 70553; 71046; 80053; 80061; 82948; 85025; 93005; 96361; 96374; 96375; 96376; 97161; 97165; 99285; A9270; A9579; G0378; J2060; J2405; J7040; Q9967